=== PATIENT | male | born 1950 | race Caucasian/White ===

== ENCOUNTER → 2016-12-02 | Outpatient (CLI) | payer MEDICAID ==
[2016-12-03 15:10] LABS: Mis test requested (Blood) Bee Venom IgE
== END | disposition home or self-care (01) ==
LOC: LABWHC1 15:21
PROVIDERS: ATTEND Allergy & Immunology
DX: Z91.038 Other insect allergy status (principal)
CPT/HCPCS: 36415; 82785; 86003

== ENCOUNTER → 2016-12-23 | Outpatient (CLI) | payer MEDICAID ==
--- NOTE | 2016-12-23 12:05 | PN ---
DATE OF CONSULTATION: 12/23/2016 A 56-year-old gentleman who has been [facility] for treatment of moderate obstructive sleep apnea-hypopnea syndrome. Patient continued to use his BiPAP equipment. Pressure is 14/10 cm of water. For the last 6 months, patient has more problem with the usage of equipment secondary to nasal allergy. Presently, he is on treatment with Zyrtec. I checked his unit usage. He is 18/30 for more than 4 hours for the last month, average 5.4 hours, for last night he is at 8.4 hours. He increased his weight from 219 pounds up to 233 pounds. No snoring with the machine. No sleepiness. [place] Sleepiness Scale is 5. MEDICATIONS: Zyrtec 10 mg one time daily. During physical exam, patient in no distress. BP 156/72, HR 86, RR 16. Height 74, weight 233.8, temperature 98.2. Oxygen saturation at room air 97%. Oropharynx low position of soft palate. ABDOMEN: Slightly obese. NECK: Supple. No JVD, Thyroid is not palpable. LUNGS: Clear to percussion and to auscultation. Good air exchange. No wheezing or rhonchi. HEART: S1, S2 regular. No murmurs, gallops, or rubs. STARCH COOKER: Awake, alert, and oriented x3. Cranial nerves 2 to 7 intact. There is no fasciculation or atrophy noted. No focal deficits observed. IMPRESSION: 1. Moderate obstructive sleep apnea-hypopnea syndrome. Apnea-hypopnea index 20.7 with oxygen desaturation to 80.6%. Patient continued to use BiPAP equipment benefiting from treatment. 2. Obesity. 3. Arthritis over the back. 4. Arthritis of the hands. 5. Allergic rhinitis. 6. History of headaches in the past. No significant headaches at the present time. PLAN: 1. Continue treatment with BiPAP every night for the whole night. 2. Losing weight. 3. Prescription for all necessary CPAP supplies. 4. No driving if feeling any sleepiness. 5. Followup visit in one year. Thank you very much for allowing me to participate in the management of your patient. Sincerely, Jose Barragan MD, PhD, FAASM Diplomat of [place] [employer], Sleep Medicine Board by [place] [employer] [place] [employer] [facility] [place]
== END | disposition home or self-care (01) ==
LOC: SLEEP 10:11
PROVIDERS: ATTEND Internal Medicine
DX: G47.33 Obstructive sleep apnea (adult) (pediatric) (principal); E66.9 Obesity, unspecified; M47.896 Other spondylosis, lumbar region; M19.042 Primary osteoarthritis, left hand; M19.041 Primary osteoarthritis, right hand; J30.9 Allergic rhinitis, unspecified; Z79.899 Other long term (current) drug therapy

== ENCOUNTER 2017-01-27 06:06 | Emergency (ER) | payer MEDICAID ==
[2017-01-27] MEDS ORDERED: ONDANSETRON 4 MG/2 ML VIAL IVP STA (06:34)
[2017-01-27] MEDS ORDERED: MORPHINE SULFATE 4 MG/ML SYRINGE IV STA (06:34)
[2017-01-27] MEDS ORDERED: SODIUM CHLORIDE 0.9% 1,000 ML IV STA (06:34)
[2017-01-27 06:53] LABS: Basophils % (A) 0 %; Eosinophils # (A) 0.1 k/uL (0-0.7); Eosinophils % (A) 1 %; HCT 43.5 % (39.0-53.0); HDW 2.85; HGB 14.8 gm/dL (13.0-17.5); Luc # (Auto) 0.06; Luc % (Auto) 1; Lymphocytes % (A) 10 %; MCH 29.4 pg (25.0-35.0); MCHC 34.1 g/dL (31.0-37.0); MCV 86.1 fL (80.0-100.0); Mean Platelet Volume 6.2; Monocytes # (A) 0.4 k/uL (0-1.0); Monocytes % (A) 4 %; Neutrophils # (A) 7.8 k/uL (1.3-7.7); Neutrophils % (A) 84 %; RBC 5.05 m/uL (4.30-5.90); RDW 13.1 % (11.5-15.5); WBC 9.3 k/uL (3.8-10.6); WBC (Perox) 9.21
[2017-01-27 06:59] LABS: Appearance,Urine Clear (Clear); Bilirubin,Urine Negative (Negative); Glucose,Urine (UA) Negative (Negative); Ketones,Urine 1+ (Negative); Leukocyte Esterase,Urine Negative (Negative); Nitrite,Urine Negative (Negative); Partial Thromboplastin Time 23.6 sec (22.0-30.0); Particle Count 5832; Protein,Urine 1+ (Negative); Prothrombin Time 10.5 sec (9.0-12.0); RBC,Urine >182 /hpf (0-5); Specific Gravity,Urine 1.019 (1.001-1.035); UA Billing (MACRO vs. MICRO) MICRO; Urobilinogen,Urine <2.0 mg/dL (<2.0)
[2017-01-27 07:04] LABS: ALT 37 U/L (21-72); AST 24 U/L (17-59); Alkaline Phosphatase 59 U/L (38-126); Amylase 96 U/L (30-110); Anion Gap 9 mmol/L; Blood Urea Nitrogen 26 mg/dL (9-20); Calcium 9.3 mg/dL (8.4-10.2); Carbon Dioxide 25 mmol/L (22-30); Chloride 108 mmol/L (98-107); Glucose 135 mg/dL (74-99); Non-African American GFR(MDRD) 56 (>60 ml/min/1.73 sqM); Potassium 4.2 mmol/L (3.5-5.1); Sodium 142 mmol/L (137-145); Total Bilirubin 0.8 mg/dL (0.2-1.3); Total Protein 7.2 g/dL (6.3-8.2)
--- NOTE | 2017-01-27 07:19 | CT ---
EXAMINATION TYPE: CT abdomen pelvis wo con DATE OF EXAM: 01/27/2017 7:08 AM COMPARISON: CT abdomen pelvis 15 August 2015 HISTORY: LLQ pain CT DLP: 832.2 mGycm Automated exposure control for dose reduction was used. TECHNIQUE: Helical acquisition of images from the lung bases through the pelvis. FINDINGS: Lack of intravenous contrast could compromise sensitivity of the exam. LUNG BASES: Minimal basilar atelectatic changes. There is a hiatal hernia present. AORTA: No significant abnormality is appreciated. LIVER/GB: Patient is that is post cholecystectomy. Liver as visualized is stable PANCREAS: No significant abnormality is seen. SPLEEN: No significant abnormality is seen. ADRENALS: No significant abnormality is seen. KIDNEYS: There is perinephric stranding on the left, mild left-sided hydronephrosis. Periureteral inc reased attenuation also noted. Proximal left ureteral calculus is present measuring approximately 3 m m. Exophytic cyst is present at the midpole the right kidney measuring approximately 17 mm. REPRODUCTIVE ORGANS: No significant abnormality is seen. URINARY BLADDER: No significant abnormality is seen. BOWEL: No significant abnormality is seen. FREE AIR: No Free Air is visible. ASCITES: None visible. PELVIC ADENOPATHY: None visualized. RETROPERITONEAL ADENOPATHY: No Retroperitoneal Adenopathy visible. OSSEOUS STRUCTURES: Degenerative disc changes in the visualized spine. IMPRESSION: PROXIMAL LEFT URETERAL CALCULUS WITH HYDRONEPHROSIS. ADDITIONAL FINDINGS ABOVE.
[2017-01-27 07:45] VITALS: RESP 16
[2017-01-27] MEDS ORDERED: TAMSULOSIN 0.4 MG CAP.ER.24H PO STA (07:52)
[2017-01-27] MEDS ORDERED: SODIUM CHLORIDE 0.9% 500 ML IV STA (07:52)
[2017-01-27] MEDS ORDERED: KETOROLAC 30 MG/ML 1 ML VIAL IVP STA (07:52)
--- NOTE | 2017-01-27 08:06 | ED ---
General Adult HPI - General Chief complaint: Abdominal Pain Stated complaint: abd pain Time Seen by Provider: 01/27/17 07:21 Source: patient, RN notes reviewed, old records reviewed Mode of arrival: ambulatory Limitations: no limitations - History of Present Illness Initial comments: This is a 67-year-old male the ER for evaluation of flank pain. Left-sided flank pain rating to groin. Patient has no prior history of similar pain, sudden onset of pain of at 4 AM is morning when he awoke, symptoms have been consistent since. No recent travel history, no sick contacts. The patient takes no medication. Patient does have history of gallbladder removal. No recent nausea vomiting or diarrhea - Related Data Home Medications Medication Instructions Recorded Confirmed Ascorbic Acid [Vitamin C] 500 mg PO DAILY 01/27/17 01/27/17 Cholecalciferol [Vitamin D3] 2,000 unit PO DAILY 01/27/17 01/27/17 Levocetirizine Dihydrochloride 5 mg PO DAILY 01/27/17 01/27/17 [Xyzal] Multivitamins, Thera [Multivitamin 1 tab PO HS 01/27/17 01/27/17 (formulary)] Saw [place] 500 mg PO HS 01/27/17 01/27/17 Turmeric Root Extract [Turmeric] 500 mg PO DAILY 01/27/17 01/27/17 Allergies Allergy/AdvReac Type Severity Reaction Status Date / Time naproxen sodium [From Aleve] Allergy Anaphylaxis Verified 01/27/17 08:02 Review of Systems ROS Statement: Those systems with pertinent positive or pertinent negative responses have been documented in the HPI. ROS Other: All systems not noted in ROS Statement are negative. Past Medical History Past Medical History: Rheumatoid Arthritis (RA), Sleep Apnea/CPAP/BIPAP History of Any Multi-Drug Resistant Organisms: None Reported Past Surgical History: Adenoidectomy, Cholecystectomy, Tonsillectomy Additional Past Surgical History / Comment(s): deviated septum Past Psychological History: No Psychological Hx Reported Smoking Status: Former smoker Past Alcohol Use History: None Reported Past Drug Use History: None Reported General Exam Limitations: no limitations General appearance: alert, in no apparent distress, anxious Head exam: Present: atraumatic, normocephalic, normal inspection Eye exam: Present: normal appearance, PERRL, EOMI. Absent: scleral icterus, conjunctival injection, periorbital swelling ENT exam: Present: normal exam, mucous membranes moist Neck exam: Present: normal inspection. Absent: tenderness, meningismus, lymphadenopathy Respiratory exam: Present: normal lung sounds bilaterally. Absent: respiratory distress, wheezes, rales, rhonchi, stridor Cardiovascular Exam: Present: regular rate, normal rhythm, normal heart sounds. Absent: systolic murmur, diastolic murmur, rubs, gallop, clicks GI/Abdominal exam: Present: soft, normal bowel sounds. Absent: distended, tenderness, guarding, rebound, rigid Extremities exam: Present: normal inspection, full ROM, normal capillary refill. Absent: tenderness, pedal edema, joint swelling, calf tenderness Back exam: Present: normal inspection Neurological exam: Present: alert, oriented X3, CN II-XII intact Psychiatric exam: Present: normal affect, normal mood Skin exam: Present: warm, dry, intact, normal color. Absent: rash Course Vital Signs 01/27/17 01/27/17 06:12 07:16 Temperature 96.7 F L 97.2 F L Pulse Rate 62 73 Respiratory 18 16 Rate Blood Pressure 145/68 134/64 O2 Sat by Pulse 100 97 Oximetry - Reevaluation(s) Reevaluation #1: 01/27/17 08:05 Patient's pain is times control EKG Findings - EKG Comments: EKG Findings:: EKG shows sinus rhythm rate of 70, OK 212, QRS 98, QTc 455 Medical Decision Making - Medical Decision Making 67 male at this time for evaluation. Patient does presents today for evaluation of flank pain left sided flank pain rating to groin, positive left- sided kidney stone, at this time patient's pain is controlled, no infection to patient can be discharged home - Lab Data Result diagrams: 01/27/17 06:40 01/27/17 06:40 Lab Results 01/27/17 01/27/17 01/27/17 Range/Units 06:40 06:40 06:40 WBC 9.3 (3.8-10.6) k/uL RBC 5.05 (4.30-5.90) m/uL Hgb 14.8 (13.0-17.5) gm/dL Hct 43.5 (39.0-53.0) % MCV 86.1 (80.0-100.0) fL MCH 29.4 (25.0-35.0) pg MCHC 34.1 (31.0-37.0) g/dL RDW 13.1 (11.5-15.5) % Plt Count 220 (150-450) k/uL Neutrophils % 84 % Lymphocytes % 10 % Monocytes % 4 % Eosinophils % 1 % Basophils % 0 % Neutrophils # 7.8 H (1.3-7.7) k/uL Lymphocytes # 1.0 (1.0-4.8) k/uL Monocytes # 0.4 (0-1.0) k/uL Eosinophils # 0.1 (0-0.7) k/uL Basophils # 0.0 (0-0.2) k/uL PT 10.5 (9.0-12.0) sec INR 1.0 (<1.1) APTT 23.6 (22.0-30.0) sec Sodium 142 (137-145) mmol/L Potassium 4.2 (3.5-5.1) mmol/L Chloride 108 H (98-107) mmol/L Carbon Dioxide 25 (22-30) mmol/L Anion Gap 9 mmol/L BUN 26 H (9-20) mg/dL Creatinine 1.29 H (0.66-1.25) mg/dL Est GFR (MDRD) Af Amer >60 (>60 ml/min/1.73 sqM) Est GFR (MDRD) Non-Af 56 (>60 ml/min/1.73 sqM) Glucose 135 H (74-99) mg/dL Calcium 9.3 (8.4-10.2) mg/dL Total Bilirubin 0.8 (0.2-1.3) mg/dL AST 24 (17-59) U/L ALT 37 (21-72) U/L Alkaline Phosphatase 59 (38-126) U/L Total Protein 7.2 (6.3-8.2) g/dL Albumin 4.4 (3.5-5.0) g/dL Amylase 96 (30-110) U/L Lipase 204 (23-300) U/L Urine Color Urine Appearance (Clear) Urine pH (5.0-8.0) Ur Specific [place] (1.001-1.035) Urine Protein (Negative) Urine Glucose (UA) (Negative) Urine Ketones (Negative) Urine Blood (Negative) Urine Nitrite (Negative) Urine Bilirubin (Negative) Urine Urobilinogen (<2.0) mg/dL Ur Leukocyte Esterase (Negative) Urine RBC (0-5) /hpf 01/27/17 Range/Units 06:40 WBC (3.8-10.6) k/uL RBC (4.30-5.90) m/uL Hgb (13.0-17.5) gm/dL Hct (39.0-53.0) % MCV (80.0-100.0) fL MCH (25.0-35.0) pg MCHC (31.0-37.0) g/dL RDW (11.5-15.5) % Plt Count (150-450) k/uL Neutrophils % % Lymphocytes % % Monocytes % % Eosinophils % % Basophils % % Neutrophils # (1.3-7.7) k/uL Lymphocytes # (1.0-4.8) k/uL Monocytes # (0-1.0) k/uL Eosinophils # (0-0.7) k/uL Basophils # (0-0.2) k/uL PT (9.0-12.0) sec INR (<1.1) APTT (22.0-30.0) sec Sodium (137-145) mmol/L Potassium (3.5-5.1) mmol/L Chloride (98-107) mmol/L Carbon Dioxide (22-30) mmol/L Anion Gap mmol/L BUN (9-20) mg/dL Creatinine (0.66-1.25) mg/dL Est GFR (MDRD) Af Amer (>60 ml/min/1.73 sqM) Est GFR (MDRD) Non-Af (>60 ml/min/1.73 sqM) Glucose (74-99) mg/dL Calcium (8.4-10.2) mg/dL Total Bilirubin (0.2-1.3) mg/dL AST (17-59) U/L ALT (21-72) U/L Alkaline Phosphatase (38-126) U/L Total Protein (6.3-8.2) g/dL Albumin (3.5-5.0) g/dL Amylase (30-110) U/L Lipase (23-300) U/L Urine Color Light Red Urine Appearance Clear (Clear) Urine pH 6.0 (5.0-8.0) Ur Specific [place] 1.019 (1.001-1.035) Urine Protein 1+ H (Negative) Urine Glucose (UA) Negative (Negative) Urine Ketones 1+ H (Negative) Urine Blood Large H (Negative) Urine Nitrite Negative (Negative) Urine Bilirubin Negative (Negative) Urine Urobilinogen <2.0 (<2.0) mg/dL Ur Leukocyte Esterase Negative (Negative) Urine RBC >182 H (0-5) /hpf - Radiology Data Radiology results: report reviewed (CT pelvis positive for kidney stone), image reviewed Disposition Clinical Impression: Calculus of right kidney Disposition: HOME SELF-CARE Condition: Good Instructions: Kidney Stones (ED) Referrals: Pro Mobley DO [Primary Care Provider] - 1-2 days
[2017-01-27 08:40] VITALS: BP 127/69; PULSE 74; TEMP 98.2
== END 2017-01-27 08:34 | disposition home or self-care (01) ==
LOC: EC 06:06
DX: N20.0 Calculus of kidney (principal); Z87.891 Personal history of nicotine dependence; Z79.899 Other long term (current) drug therapy; Z88.6 Allergy status to analgesic agent; Z90.49 Acquired absence of other specified parts of digestive tract
CPT/HCPCS: 99285; 96374; 96375; 96361 ×2; 36415; 93005; 80053; 82150; 83690; 84484; 85025; 85610; 85730; 81001; 74176; J2270; J2405

== ENCOUNTER 2017-08-08 11:54 | Emergency (ER) | payer MEDICAID ==
--- NOTE | 2017-08-08 12:33 | ED ---
Upper Extremity HPI - General Chief Complaint: Extremity Injury, Upper Stated Complaint: LEFT SHOULDER INJURY Time Seen by Provider: 08/08/17 12:12 Source: patient, RN notes reviewed Mode of arrival: ambulatory Limitations: no limitations - History of Present Illness Initial Comments: 67-year-old male presents emergency Department with chief complaint of left upper shoulder, trapezius region pain. Patient states this started approximately 10 days ago after raking. Patient states that his left arm was on the lower aspect of the rake handle states that this is what he uses primarily to rake. Patient states he is [id number] though. Patient denies any prior injuries denies prior surgeries or any injuries in the past to his left shoulder. Patient denies any paresthesias. Patient states he has pain more so when he lifts his arm above his shoulder but also if he goes to lift anything of any weight. 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 denies chest pain, shortness breath, fever or chills. He states he got something do with his back or neck [facility] went to chiropractic today but states it did not help. Patient states that he had more discomfort today so he felt that he needs: The emergency department. Patient states she's been taken ibuprofen and initially alleviated most the symptoms but states it has not been helping as much. - Related Data Home Medications Medication Instructions Recorded Confirmed Ascorbic Acid [Vitamin C] 500 mg PO DAILY 01/27/17 01/27/17 Cholecalciferol [Vitamin D3] 2,000 unit PO DAILY 01/27/17 01/27/17 Levocetirizine Dihydrochloride 5 mg PO DAILY 01/27/17 01/27/17 [Xyzal] Multivitamins, Thera [Multivitamin 1 tab PO HS 01/27/17 01/27/17 (formulary)] Saw [place] 500 mg PO HS 01/27/17 01/27/17 Turmeric Root Extract [Turmeric] 500 mg PO DAILY 01/27/17 01/27/17 Previous Rx's Medication Instructions Recorded HYDROcodone/APAP 5-325MG [[place] 1 tab PO Q6HR PRN #30 tab 01/27/17 5-325] Tamsulosin [Flomax] 0.4 mg PO DAILY #30 cap 01/27/17 Hydrocodone/Acetaminophen [[place] 1 tab PO Q6HR PRN #20 tab 08/08/17 5-325] methylPREDNISolone [Medrol Dose 4 mg PO DIRECTED #1 pack 08/08/17 Pack] Allergies Allergy/AdvReac Type Severity Reaction Status Date / Time naproxen sodium [From Aleve] Allergy Anaphylaxis Verified 08/08/17 11:58 Review of Systems ROS Statement: Those systems with pertinent positive or pertinent negative responses have been documented in the HPI. ROS Other: All systems not noted in ROS Statement are negative. Past Medical History Past Medical History: Rheumatoid Arthritis (RA), Sleep Apnea/CPAP/BIPAP Additional Past Medical History / Comment(s): back pain History of Any Multi-Drug Resistant Organisms: None Reported Past Surgical History: Adenoidectomy, Cholecystectomy, Tonsillectomy Additional Past Surgical History / Comment(s): deviated septum Past Psychological History: No Psychological Hx Reported Smoking Status: Former smoker Past Alcohol Use History: None Reported Past Drug Use History: None Reported General Exam Limitations: no limitations General appearance: alert, in no apparent distress Head exam: Present: atraumatic, normocephalic, normal inspection Eye exam: Present: normal appearance, PERRL, EOMI. Absent: scleral icterus, conjunctival injection, periorbital swelling ENT exam: Present: normal exam, normal oropharynx, mucous membranes moist, TM's normal bilaterally, normal external ear exam Neck exam: Present: normal inspection, tenderness (Mild tenderness over the left trapezius region, noted muscle spasm), full ROM. Absent: meningismus, lymphadenopathy Respiratory exam: Present: normal lung sounds bilaterally. Absent: respiratory distress, wheezes, rales, rhonchi, stridor Cardiovascular Exam: Present: regular rate, normal rhythm, normal heart sounds. Absent: systolic murmur, diastolic murmur, rubs, gallop, clicks Extremities exam: Present: other (Left shoulder patient has full range of motion with mild discomfort greater than proximal 105 with a negative apprehension neers impingement test, strength is equal bilaterally 5/5 no pain with internal or external rotation neurovascular intact and equal radial pulses equal color to the extremities) Neurological exam: Present: reflexes normal. Absent: motor sensory deficit Skin exam: Present: warm, dry, intact, normal color. Absent: rash Course Vital Signs 11/20/17 11:56 Temperature 98.0 F Pulse Rate 70 Respiratory 20 Rate Blood Pressure 178/86 O2 Sat by Pulse 100 Oximetry Medical Decision Making - Medical Decision Making 67-year-old male present emergency from for left shoulder neck pain. Patient's pain seems to be more cervical radiculopathy pain along with some shoulder tendinitis. Patient was started on steroids, pain medication and follow-up with Dr. Simon.X-ray of the cervical spine shows mild to moderate spondylitic changes no malalignment there is moderate neuroforaminal narrowing at the left C4-C5 and moderate to severe at C3-C4 moderate severe on the right at C6-C7 Disposition Clinical Impression: Left shoulder tendinitis, AC (acromioclavicular) arthritis, Cervical radiculopathy Disposition: HOME SELF-CARE Condition: Stable Instructions: Cervical Radiculopathy (ED), Rotator Cuff Tendinitis (ED) Additional Instructions: Please return to the Emergency Department if symptoms worsen or any other concerns. Prescriptions: Hydrocodone/Acetaminophen [[place] 5-325] 1 tab PO Q6HR PRN #20 tab PRN Reason: Pain methylPREDNISolone [Medrol Dose Pack] 4 mg PO DIRECTED #1 pack Referrals: Pro Mobley DO [Primary Care Provider] - 1-2 days Keara Zhu DO [Doctor of Osteopathic Medicine] - 1-2 days Time of Disposition: 13:06
--- NOTE | 2017-08-08 12:53 | XR ---
EXAMINATION TYPE: XR cervical spine comp DATE OF EXAM: 08/08/2017 COMPARISON: NONE HISTORY: 67 year-old male left shoulder pain, worsening TECHNIQUE: 6 views FINDINGS: No predental space widening or prevertebral soft tissue swelling. Mild endplate spondylosis anteriorl y at C4-C5 and C5-C6 and more moderate at C6-C7. Alignment is maintained. Facet arthropathy lower cer vical spine. On the left, changes result in moderate bony neuroforaminal narrowing at C4-C5 and moderate to severe at C3-C4. On the right, changes result in moderate to severe bony spondylotic neuroforaminal narrowing at C6-C7 . Limited assessment of the C2-C3 neuroforamen due to the obliquity of the patient. Normal odontoid view. IMPRESSION: [id number] spondylotic change. No malalignment. There is moderate neuroforaminal narrowing on t he left at C4-C5 and moderate to severe at C3-C4. Moderate to severe on the right at C6/C7.
--- NOTE | 2017-08-08 12:54 | XR ---
EXAMINATION TYPE: XR shoulder complete LT DATE OF EXAM: 08/08/2017 COMPARISON: NONE HISTORY: 67 year-old male left shoulder pain, worsening TECHNIQUE: 3 views FINDINGS: Mild degenerative joint space narrowing with marginal spurring and capsular hypertrophy at the acromi oclavicular joint. Subacromial space is preserved. No tendinous or bursal calcifications. Small delineation to the great er tuberosity. Visualized left hemithorax is clear. IMPRESSION: Mild AC joint OA. No acute osseous abnormality seen.
[2017-08-08 13:13] VITALS: BP 147/78; PULSE 64; RESP 18; TEMP 98.1
== END 2017-08-08 13:13 | disposition home or self-care (01) ==
LOC: EC 11:54
DX: M75.92 Shoulder lesion, unspecified, left shoulder (principal); M19.012 Primary osteoarthritis, left shoulder; M54.12 Radiculopathy, cervical region; G47.30 Sleep apnea, unspecified; Z99.89 Dependence on other enabling machines and devices; Z87.891 Personal history of nicotine dependence; Z79.899 Other long term (current) drug therapy; Z88.6 Allergy status to analgesic agent
CPT/HCPCS: 72050; 99283

== ENCOUNTER → 2017-09-30 | Outpatient (CLI) | payer MEDICAID ==
--- NOTE | 2017-09-30 10:00 | MR ---
EXAMINATION TYPE: MR shoulder LT wo con DATE OF EXAM: 09/30/2017 COMPARISON: NONE HISTORY: Pain in left shoulder TECHNIQUE: Multiplanar, multisequence imaging of the left shoulder is performed without contrast. FINDINGS: Rotator Cuff: There is a partial through thickness tear involving the insertion of the infraspinatus tendon measuring approximately 11 mm in AP dimension. No retraction. There is intrasubstance abnormal signal involving the distal margin of the supraspinatus tendon compatible with chronic tendinopathy. Partial intrasubstance tear noted with no evidence of retraction. Acromioclavicular Joint: Arthropathy of the AC joint is noted. This results in impingement of the sup raspinatus tendon and muscle. There is a degree of atrophy involving the supraspinatus muscle. Glenohumeral Joint: No sizable joint effusion. Glenohumeral ligaments appear intact. Joint space pres erved. Labrum: The labrum appears grossly intact given limitation of non-arthrogram study. Biceps Tendon: The long head of biceps is in normal location within bicipital groove. Increased signa l seen in the intracapsular portion of the tendon compatible tendinosis. Bone marrow signal: No focal abnormal marrow signal is appreciated. Other: No additional significant abnormality is appreciated. IMPRESSION: 1. Partial through thickness tear insertion infraspinatus tendon with no retraction. 2. Tendinosis and partial intrasubstance tear insertion supraspinatus tendon. 3. Bicipital tendinosis intracapsular portion bicipital tendon. 4. Impingement secondary to hypertrophic change of the AC joint. Degree of atrophy involving the supr aspinatus muscle.
== END | disposition home or self-care (01) ==
LOC: RADMRIMAIN 09:08
PROVIDERS: ATTEND Orthopaedic Surgery
DX: M75.112 Incomplete rotator cuff tear or rupture of left shoulder, not specified as traumatic (principal); M75.22 Bicipital tendinitis, left shoulder; M25.812 Other specified joint disorders, left shoulder; M62.512 Muscle wasting and atrophy, not elsewhere classified, left shoulder

== ENCOUNTER → 2017-10-20 | Outpatient (CLI) | payer MEDICAID ==
[2017-10-20 09:54] LABS: Basophils % (A) 0 %; Eosinophils # (A) 0.1 k/uL (0-0.7); Eosinophils % (A) 2 %; HCT 42.4 % (39.0-53.0); HGB 14.2 gm/dL (13.0-17.5); Lymphocytes # (A) 1.9 k/uL (1.0-4.8); Lymphocytes % (A) 33 %; MCH 29.3 pg (25.0-35.0); MCHC 33.6 g/dL (31.0-37.0); MCV 87.4 fL (80.0-100.0); Mean Platelet Volume 6.8; Monocytes # (A) 0.3 k/uL (0-1.0); Monocytes % (A) 5 %; Neutrophils # (A) 3.2 k/uL (1.3-7.7); Neutrophils % (A) 56 %; Platelet Count 231 k/uL (150-450); RBC 4.84 m/uL (4.30-5.90); WBC 5.6 k/uL (3.8-10.6)
== END | disposition home or self-care (01) ==
LOC: LABPAT 09:10
PROVIDERS: ATTEND Orthopaedic Surgery
DX: Z01.818 Encounter for other preprocedural examination (principal); Z01.812 Encounter for preprocedural laboratory examination; M75.42 Impingement syndrome of left shoulder
CPT/HCPCS: 36415; 80051; 85025; 93005

== ENCOUNTER 2017-11-03 07:56 | Day surgery (SDC) | payer MEDICAID ==
[2017-10-31 10:14] VITALS: BMI 27.2
--- NOTE | 2017-11-02 17:50 | HP ---
HISTORY AND PHYSICAL REASON FOR ADMISSION: Surgery scheduled for 11/03/2017. Janes Severino is a 67-year-old patient seen with left shoulder pain. We discussed treatment options. He elected to proceed with left shoulder arthroscopy. Consent regarding the procedure was obtained. PAST MEDICAL HISTORY: Noncontributory. PAST SURGICAL HISTORY: Appendectomy, cholecystectomy, nasal surgery. DAILY MEDICATIONS: Ibuprofen. ALLERGIES: ALEVE. SOCIAL HISTORY: Patient denies current tobacco use. PHYSICAL EXAMINATION: Evaluation left shoulder flexion is 130 degrees, abduction 120 degrees, external rotation is 50 degrees with weakness. There is tenderness along the anterior lateral acromion rotator cuff insertion site. There is a positive impingement sign at 100 degrees. Distal neurovascular exam is intact. Drop-arm sign is positive. RADIOGRAPHS: Radiographs of the left shoulder revealed a type 2 anterior acromion, evidence for acromioclavicular joint osteoarthritis. Left shoulder MRI revealed a partial rotator cuff tear, biceps tendinosis, and acromioclavicular joint osteoarthritis. IMPRESSION: Left shoulder impingement with partial rotator cuff tear, acromioclavicular joint osteoarthritis and bicipital tendinosis. PLAN: Left shoulder arthroscopy with subacromial decompression probable arthroscopic rotator cuff repair, probable Maggie procedure, possible biceps tenotomy and debridement. Surgery scheduled for 11/03/2017. MMODL / IJN: [id number] /
[~2017-11-03 07:56] MED LIST: DEXAMETHASONE SOD PHOSPHATE 10 MG/ML 1 ML VIAL IV ONE; HYDROmorphone 0.5 MG/0.5 ML SYRINGE IVP PRN; LACTATED RINGERS 1,000 ML IV SCH; LIDOCAINE 1% 20 ML VIAL (10MG/ML) FOR IV START INTRADERMA PRN; MIDAZOLAM 2 MG/2 ML VIAL IV PRN; ONDANSETRON 4 MG/2 ML VIAL IVP ONE; SCOPOLAMINE 1.5MG/72HR PATCH TRANSDERM ONE; ceFAZolin IN SWFI 2 GM/20 ML SYRINGE IVP ONE
[2017-11-03] MEDS ORDERED: fentaNYL (PF) 50 MCG/ML 2 ML AMP IV ONE (08:35)
[2017-11-03] MEDS ORDERED: fentaNYL (PF) 50 MCG/ML 2 ML AMP ONE (09:37)
[2017-11-03] MEDS ORDERED: MIDAZOLAM 2 MG/2 ML VIAL ONE (09:37)
[2017-11-03] MEDS ORDERED: ROPIVACAINE 5 MG/ML 30 ML VIAL ONE (09:37)
[2017-11-03] MEDS ORDERED: ePHEDrine SULFATE/0.9% NACL/PF 50 MG/5 ML SYRINGE IV ONE (09:37)
[2017-11-03] MEDS ORDERED: SUCCINYLCHOLINE CHLORIDE 100 MG/5 ML SYR IV ONE (09:37)
[2017-11-03] MEDS ORDERED: PROPOFOL 10 MG/ML 20 ML VIAL IV ONE (09:37)
[2017-11-03] MEDS ORDERED: LIDOCAINE 2%-EPI 1:100,000 20 ML VIAL ONE (09:37)
[2017-11-03] MEDS ORDERED: LIDOCAINE 1% INJ 10MG/ML (20 ML MDV) ONE (09:37)
--- NOTE | 2017-11-03 10:29 | P.ONQ ---
Anesthesiology Proc Note - PNB - Peripheral Nerve Block Performed Left Interscalene Single Time Out Performed: Yes Procedure Start Time: 08:30 Indication: Acute Post-Operative Pain, Analgesia Specifically requested for management of pain by DrElen: Rajiv King Sedation Type: Sedate with meaningful contact maintained Preparation: Sterile Prep Position: Supine Catheter: None Needle Types: Other (see comment) (pajunk) Needle Size: 50mm (2") Needle Gauge: 21 Technique: Ultrasound Injectate: 0.5% Ropivacaine (see comment for volume) (30) Adjunct: Epinephrine (see comment for dilution ratio) (150mcg) Blood Aspirated: No Pain Paresthesia on Injection Noted: No Resistance on Injection: Normal Events: Uneventful and Well Tolerated
[2017-11-03] MEDS ORDERED: LACTATED RINGERS 1,000 ML IV ONE (10:45)
[2017-11-03 11:24] VITALS: TEMP 96.8
--- NOTE | 2017-11-03 11:24 | P.OP ---
Date of Procedure: 11/03/17 Preoperative Diagnosis: Left shoulder impingement Postoperative Diagnosis: 1. Left shoulder rotator cuff tear 2. Left shoulder impingement 3. Left shoulder acromioclavicular joint osteoarthritis 4. Left shoulder partial long head biceps tendon tear 5. Left shoulder superficial anterior labral tear 6. 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 Left shoulder arthroscopic rotator cuff repair 2. Left shoulder arthroscopic subacromial decompression 3. Left shoulder arthroscopic Maggie procedure 4. Left shoulder arthroscopic biceps tenotomy 5. Left shoulder arthroscopic debridement labral tear 6. Left shoulder arthroscopic chondroplasty glenoid Implants: 1-4.5 peek anchor Anesthesia: GETA, regional (Interscalene the) Surgeon: Rajiv King General Helper #1: Irving Vera Estimated Blood Loss (ml): 13 Pathology: none sent Condition: stable Disposition: PACU Indications for Procedure: 67-year-old patient seen with left shoulder pain. After having treatment options discussed, he elected to proceed with arthroscopy. Operative Findings: see description of procedure Description of Procedure: Patient underwent a shoulder block by department of anesthesia. The patient was then taken to the operative suite. The patient underwent a general anesthetic by the department of anesthesia. The patient was placed into a lateral position and secured. There was appropriate padding of the bony prominence. Left shoulder was then prepped and draped in normal sterile orthopedic fashion. We placed the extremity in 10 pounds of longitudinal traction. A posterior incision was now made for a posterior working portal site. The trocar and cannula were inserted into the glenohumeral joint. Arthroscopy was initiated. Spinal needle was now inserted anteriorly, to ascertain the anterior working portal site. An incision was now made in that area, a trocar was inserted followed by a probe. There was superficial tearing of the anterior labrum. There were grade 1/2 chondromalacia changes of the superior aspect of the glenoid with some small osteochondral tears present. There was partial tearing long head biceps tendon present. The posterior and inferior labrum were intact. The superior labrum had some mild fraying. I performed a arthroscopic biceps tenotomy. I debrided the labral tears down to stable tissue. I performed a chondroplasty of the glenoid. The probe was reinserted. The residual osteochondral surface was stable. The residual labrum was stable. Instruments were now removed from the glenohumeral joint. Utilizing the posterior working portal site, the trocar and cannula were inserted into the subacromial space. Arthroscopy initiated. I made an incision 2 fingerbreadths lateral to the acromion. I introduced my trocar followed by my ArthroCare ablator. I now began ablating thick subacromial bursal tissue, which exposed the undersurface of the anterior acromion. This was diminished subacromial space. There was a very prominent anterior acromion. A motorized bur was introduced and a subacromial decompression was performed. I also excised some osteophytes off the inferior aspect of the distal clavicle. The AC joint was visualized and noted to be fairly arthritic. Our motorized bur was introduced in the anterior portal site and a Maggie procedure was performed without difficulty, decompressing the AC joint nicely. I turned my attention to the rotator cuff. There was some obvious tearing noted along the midportion distal supraspinatus. I used a motorized shaver and debrided that down to stable tissue. We had a 1-1.5 cm tear that was freely mobile over the footprint. I abraded the footprint with a motorized bur. I passed 2 everted mattress sutures through good bites of rotator cuff tendon. We pulled that over the footprint we did note a dogear low posteriorly. I passed 1 additional suture loop through that potential dogear. We now repaired the tendon with one single 4.5 anchor compressing the tendon along the footprint nicely. Residual suture limbs were clipped. We had a good stable repair. I injected 1 mL of UCT intra-articular. Instruments now removed from the portal sites. All portal sites were approximated with nylon suture. Sterile dressings were applied followed by a shoulder immobilizer. Pankaj YIN assisted with the procedure. The patient was awakened, transferred to a bed, and taken to recovery in stable condition.
[2017-11-03 12:29] VITALS: PULSE 72
[2017-11-03 12:42] VITALS: BP 118/68; RESP 18
== END 2017-11-03 13:14 | disposition home or self-care (01) ==
LOC: OR 07:56
PROVIDERS: ATTEND Orthopaedic Surgery
DX: M75.102 Unspecified rotator cuff tear or rupture of left shoulder, not specified as traumatic (principal); M25.812 Other specified joint disorders, left shoulder; M19.012 Primary osteoarthritis, left shoulder; S46.112A Strain of muscle, fascia and tendon of long head of biceps, left arm, initial encounter; S43.402A Unspecified sprain of left shoulder joint, initial encounter; X58.XXXA Exposure to other specified factors, initial encounter; M94.212 Chondromalacia, left shoulder; M25.712 Osteophyte, left shoulder; Z79.1 Long term (current) use of non-steroidal anti-inflammatories (NSAID); Z88.6 Allergy status to analgesic agent; Z87.891 Personal history of nicotine dependence; Z87.442 Personal history of urinary calculi
CPT/HCPCS: 64415

== ENCOUNTER → 2017-12-22 | Outpatient (CLI) | payer MEDICAID ==
--- NOTE | 2017-12-22 12:00 | SFUN ---
SLEEP STUDY FOLLOW UP NOTE DATE OF SERVICE: 12/22/2017 A 67-year-old gentleman who has been followed in the Sleep Center for treatment of moderate obstructive sleep apnea-hypopnea syndrome, previous sleep study done in 2013. Since that time, patient was on treatment with BiPAP 14/10 cm of water since 2013, but for the last 6 months he has problem with the usage of BiPAP, feels discomfort in his nose, developed symptoms of sinusitis and subsequently he did not use equipment for that period of time. He continued to have problems with breathing during the night, awakenings from sleep. [place] Sleepiness Scale increased to 10. I checked his BiPAP unit, BiPAP pressure 14/10 cm of water. Patient did not use it for several months. MEDICATIONS: Ibuprofen, Xyzal. PHYSICAL EXAM: Patient in no distress. BP 127/86, HR 88, RR 14, height 6, 1, weight 220.4, BMI 29.0, temperature 99.3, oxygen saturation at room air 98%. OROPHARYNX: Low position of soft palate. Neck Supple, no JVD. Thyroid is not palpable. LUNGS Clear to percussion and to auscultation. Good air exchange. No wheezing or rhonchi. HEART S1, S2 regular. No murmurs, gallops, or rubs. ABDOMEN Soft and nontender. Bowel sounds are present. No organomegaly appreciated. EXTREMITIES No clubbing or cyanosis. CHARGE ENTRY CLERK Awake, alert, and oriented X3. Cranial nerves 2 to 7 intact. There is no fasciculation or atrophy. noted. No focal deficits observed. IMPRESSION: 1. Moderate obstructive sleep apnea-hypopnea syndrome; apnea-hypopnea index 20.7 with oxygen desaturation to 80.6% by results of sleep study several years ago. Patient not able to use machine for several months because of discomfort in the nose. 2. History of sinusitis. 3. Allergy. 4. Status post left shoulder surgery for rotator cuff problems. 5. Back problems. PLAN: 1. Repeat CPAP-BiPAP titration for evaluation of effective pressure at the present time. 2. Sleep hygiene with regular time in bed for at least 7-1/2, 8 hours. 3. No driving if feeling any sleepiness. 4. Patient will restart treatment with PAP after pressure will be adjusted. Thank you very much for allowing me to participate in the management of your patient. Sincerely, Jose Barragan MD, PhD, FAASM Diplomat of [place] Quality Control Manager of [facility] [place] MMANNIKA / KATLIN: [phone] /
== END | disposition home or self-care (01) ==
LOC: SLEEP 10:26
PROVIDERS: ATTEND Internal Medicine
DX: G47.33 Obstructive sleep apnea (adult) (pediatric) (principal); T78.40XA Allergy, unspecified, initial encounter; Z99.89 Dependence on other enabling machines and devices; Z79.1 Long term (current) use of non-steroidal anti-inflammatories (NSAID); Z79.899 Other long term (current) drug therapy; Z98.890 Other specified postprocedural states; Z87.09 Personal history of other diseases of the respiratory system

== ENCOUNTER → 2018-09-14 | Outpatient (CLI) | payer MEDICAID ==
--- NOTE | 2018-09-14 11:23 | SFUN ---
SLEEP CENTER FOLLOW UP NOTE DATE OF SERVICE: 09/14/2018 A 68-year-old gentleman who has been followed in the Sleep Center for treatment of obstructive sleep apnea-hypopnea syndrome. Patient has difficulties with the usage of BiPAP equipment secondary to leaking from his full face mask to the eye area. He cannot use nasal mask because he has difficulties to breathe from the nose in relationship to his allergies and sinusitis. When he is able to use machine, he feels better during sleep and during the day. [place] Sleepiness Scale today is 9. MEDICATIONS: Benadryl. PHYSICAL EXAM: Patient in no distress. BP 128/73, HR 84, RR 16, height 6 and 1, weight 218, body mass index 28.7, temperature 98.4, oxygen saturation at room air 97%. OROPHARYNX: Low position of soft palate. Neck Supple, no JVD. Thyroid is not palpable. LUNGS Clear to percussion and to auscultation. Good air exchange. No wheezing or rhonchi. HEART S1, S2 regular. No murmurs, gallops, or rubs. ABDOMEN Soft and nontender. Bowel sounds are present. No organomegaly appreciated. EXTREMITIES No clubbing or cyanosis. DATA ARCHITECT Awake, alert, and oriented X3. Cranial nerves 2 to 7 intact. There is no fasciculation or atrophy. noted. No focal deficits observed. IMPRESSION: 1. Moderate obstructive sleep apnea-hypopnea syndrome; apnea-hypopnea index 20.7 with oxygen desaturation to 80.6% by results of sleep study several years ago. Patient has difficulties with the usage of his BiPAP machine secondary to leak from his mask to the eyes area. 2. History of sinusitis. 3. Allergy. 4. Status post left shoulder surgery for rotator cuff problems. 5. Back problems. PLAN: 1. Refitted patient with a Dream Wear full-face mask and patient believes that this mask is better than the one he using now. I will write a prescription for that mask and patient will get this mask. 2. Patient should continue to use BiPAP equipment every night. 3. Sleep hygiene with regular time in bed for at least 8 hours. 4. No driving if feeling sleepiness. 5. Followup visit in 2 months to evaluate the patient breathing with this type of mask and check his apnea-hypopnea index on BiPAP. Thank you very much for allowing me to participate in management of your patient. Sincerely, Jose Stefadu, MD, PhD, FAASM Diplomat of [employer] [employer] Company Tanker Truck Driver of [facility] [place] MMODL / KATLIN: [phone] /
== END | disposition home or self-care (01) ==
LOC: SLEEP 10:08
PROVIDERS: ATTEND Internal Medicine
DX: G47.33 Obstructive sleep apnea (adult) (pediatric) (principal); M53.9 Dorsopathy, unspecified; T78.40XA Allergy, unspecified, initial encounter; Z99.89 Dependence on other enabling machines and devices; Z79.899 Other long term (current) drug therapy; Z98.890 Other specified postprocedural states; Z87.09 Personal history of other diseases of the respiratory system

== ENCOUNTER → 2018-10-25 | Outpatient (CLI) | payer MEDICAID ==
--- NOTE | 2018-10-25 11:17 | SFUN ---
SLEEP CENTER FOLLOW UP NOTE DATE OF SERVICE: 10/25/2018 A 68-year-old gentleman who has been followed in the Sleep Center for treatment of obstructive sleep apnea-hypopnea syndrome. Patient continued to use CPAP equipment but still has some problem with his full-face mask. After the previous visit, we changed full-face mask to Dream Wear full-face mask but patient open-mouth still with this mask and sometimes the edge of the mask goes to the mouth and he does not feel comfortable. Before we tried Dorothy View mask which also mask goes under the nose and cover mouth and it also unfortunately did not work. [place] Sleepiness Scale today is 5. MEDICATIONS: Benadryl. I checked patient's CPAP unit. Usage is 16/30 nights more than 4 hours, average usage 4.2 hours. PHYSICAL EXAM: Patient in no distress. BP 147/65, HR 90, RR 16, height 6 and 1, weight 218, body mass index 28.7, temperature 99.1. Oxygen saturation at room air 97%. OROPHARYNX: Low position of soft palate. Neck Supple, no JVD. Thyroid is not palpable. LUNGS Clear to percussion and to auscultation. Good air exchange. No wheezing or rhonchi. HEART S1, S2 regular. No murmurs, gallops, or rubs. ABDOMEN Soft and nontender. Bowel sounds are present. No organomegaly appreciated. EXTREMITIES No clubbing or cyanosis. TESTER EQUIPMENT Awake, alert, and oriented X3. Cranial nerves 2 to 7 intact. There is no fasciculation or atrophy. noted. No focal deficits observed. IMPRESSION: 1. Moderate obstructive sleep apnea-hypopnea syndrome; apnea-hypopnea index 20.7. Patient continued to use BiPAP equipment, but has difficulties with a full-face mask when he opens mouth, edge of the mask may go to the mouth. He has difficulties with the using chin strap, it presses on his head and creates headaches. 2. History of sinusitis. 3. Allergy. 4. Status post left shoulder surgery for rotator cuff problem. 5. Back problems. PLAN: 1. We will try Mirage Quattro full-face mask. I will write a prescription for this mask today. 2. Patient will continue to use his BiPAP equipment every night. 3. Sleep hygiene with regular time in bed for 7.5 hours. 4. No driving if feeling sleepiness. Thank you very much for allowing me to participate in the management of your patient. Sincerely, Jose Barragan MD, PhD, FAASM Diplomat of [employer] Emblem Maker of [facility] [place] MOHIT / KATLIN: [phone] /
== END | disposition home or self-care (01) ==
LOC: SLEEP 10:14
PROVIDERS: ATTEND Internal Medicine
DX: G47.33 Obstructive sleep apnea (adult) (pediatric) (principal); R51 Headache; M53.9 Dorsopathy, unspecified; T78.40XA Allergy, unspecified, initial encounter; Z99.89 Dependence on other enabling machines and devices; Z79.899 Other long term (current) drug therapy; Z98.890 Other specified postprocedural states; Z87.09 Personal history of other diseases of the respiratory system

== ENCOUNTER → 2019-10-10 | Outpatient (CLI) | payer MEDICAID ==
--- NOTE | 2019-10-10 15:32 | CT ---
EXAMINATION TYPE: CT abdomen pelvis wo con DATE OF EXAM: 10/10/2019 HISTORY: Generalized abdominal pain. Diverticulitis per order. CT DLP: 909 mGycm. Automated Exposure Control for Dose Reduction was Utilized. TECHNIQUE: CT scan of the abdomen and pelvis is performed with oral but without IV contrast. COMPARISON: CT abdomen and pelvis January 27, [address] FINDINGS: Within the limitations of a non-contrast study, the following observations are made. LUNG BASES: Persistent medial right basilar nodule measuring 9 x 7 mm image 8 shows perhaps minimal i nterval growth from prior studies. LIVER/GB: Cholecystectomy clips are redemonstrated. PANCREAS: No significant abnormality is seen. SPLEEN: No significant abnormality is seen. ADRENALS: No significant abnormality is seen. KIDNEYS: No renal calculus or hydronephrosis is seen bilaterally. Low dense 1.3 cm exophytic lesion p osteriorly midpole level right kidney axial image 36 favor simple thin-walled cyst significantly garcia ged from prior study. BOWEL: Oral contrast does not reach level of terminal ileum which is along right lateral aspect of th e thecal making evaluation slightly suboptimal. Mild wall thickening terminal ileum is present favore d product of poor distention. There is no suspicious small or large bowel dilatation. Mild to moderat e prominence of fecal material in the right colon extends into the transverse colon. There is some re dundancy of the sigmoid colon with a few scattered diverticula. No CT evidence for acute diverticulit is. Mild/moderate prominence of fecal material in the rectum. Redemonstration of displaced surgical c lip into the pelvic cul-de-sac anterior to rectum axial image 73. GENITAL ORGANS: Prostate gland normal in size. Scattered pelvic phleboliths bilaterally are redemonst rated. LYMPH NODES: No greater than 1cm abdominal or pelvic lymph nodes are appreciated. OSSEOUS STRUCTURES: Grade 1 retrolisthesis L2 on L3 anterior spur disc complex effacing the anterior thecal sac L1-L2 and L2-L3 levels along with L3-L4 level where there is moderate right-sided narrowin g and spurring. Moderate narrowing of both hip joints. There is some spurring and sclerosis along the sacroiliac joints bilaterally. OTHER: Mild calcified plaque abdominal aorta is seen. Small fat-containing left inguinal hernia redem onstrated. IMPRESSION: 1. Occasional distal colonic diverticula without convincing CT evidence for acute diverticulitis. Ove rall nonobstructive bowel gas pattern. Mild to borderline moderate diffuse colonic fecal stasis is th ought present.
== END | disposition home or self-care (01) ==
LOC: RADCTMAIN 13:27
PROVIDERS: ATTEND Family Medicine
DX: R14.3 Flatulence (principal)
CPT/HCPCS: 74176

== ENCOUNTER 2019-11-02 07:04 | Day surgery (SDC) | payer MEDICAID ==
[2019-10-31 13:12] VITALS: BMI 26.3
[~2019-11-02 07:04] MED LIST changes: -DEXAMETHASONE SOD PHOSPHATE 10 MG/ML 1 ML VIAL IV ONE; -HYDROmorphone 0.5 MG/0.5 ML SYRINGE IVP PRN; -MIDAZOLAM 2 MG/2 ML VIAL IV PRN; -ONDANSETRON 4 MG/2 ML VIAL IVP ONE; -SCOPOLAMINE 1.5MG/72HR PATCH TRANSDERM ONE; -ceFAZolin IN SWFI 2 GM/20 ML SYRINGE IVP ONE
[2019-11-02 07:38] VITALS: RESP 16; TEMP 97.2
[2019-11-02] MEDS ORDERED: PROPOFOL 10 MG/ML 20 ML VIAL IV ONE (07:46)
--- NOTE | 2019-11-02 07:46 | P.GSHP ---
History of Present Illness H&P Date: 11/02/19 Chief Complaint: Diverticulitis This a 69-year-old male who presents today for colonoscopy. Patient has had complaints of diverticulitis. Past Medical History Past Medical History: Cancer, Osteoarthritis (OA), Sleep Apnea/CPAP/BIPAP Additional Past Medical History / Comment(s): abdominal pain, diverticulitis on CT scan w/ fecal impaction,steroid Sep 2019,no cpap hx back pain,basal cell on back History of Any Multi-Drug Resistant Organisms: None Reported Past Surgical History: Adenoidectomy, Cholecystectomy, Tonsillectomy Additional Past Surgical History / Comment(s): deviated septum,lt rot cuff repair Past Anesthesia/Blood Transfusion Reactions: No Reported Reaction Smoking Status: Former smoker - Past Family History Mother Family Medical History: Cancer Additional Family Medical History / Comment(s): breast CA Medications and Allergies Home Medications Medication Instructions Recorded Confirmed Type diphenhydrAMINE HCL [Benadryl] 25 mg PO HS 10/31/17 11/02/19 History Ibuprofen 800 mg PO Q8H PRN 10/31/19 11/02/19 History Allergies Allergy/AdvReac Type Severity Reaction Status Date / Time naproxen sodium [From Aleve] Allergy Anaphylaxis Verified 11/02/19 07:20 Surgical - Exam Vital Signs Temp Pulse Resp BP Pulse Ox 97.2 F L 95 16 126/69 98 11/02/19 07:22 11/02/19 07:22 11/02/19 07:22 11/02/19 07:22 11/02/19 07:22 - General well developed, well nourished, no distress - Eyes PERRL - ENT normal pinna - Neck no masses - Respiratory normal expansion - Cardiovascular Rhythm: regular - Abdomen Abdomen: soft, non tender Assessment and Plan Assessment: History diverticula is. We'll perform colonoscopy.
--- NOTE | 2019-11-02 08:02 | P.OP ---
Date of Procedure: 11/02/19 Preoperative Diagnosis: Diverticulitis Postoperative Diagnosis: Diverticulosis Procedure(s) Performed: Colonoscopy Anesthesia: MAC Surgeon: Emmanuel Horta Estimated Blood Loss (ml): 5 Pathology: none sent Condition: stable Disposition: PACU Description of Procedure: The patient's placed on the endoscopy table in the lateral position. He received IV sedation. Digital rectal exam was performed which revealed no abnormalities. Flexible colonoscope was then placed patient anus passed throughout the entire colon. The ileocecal valve was visualized. The cecum, ascending and transverse colon appeared normal. In the descending and sigmoid colon is mild diverticular changes. Scope was then brought back the rectum and this appeared normal. Scope withdrawn for patient.
[2019-11-02 08:46] VITALS: BP 109/65; PULSE 82
== END 2019-11-02 09:21 | disposition home or self-care (01) ==
LOC: ORWHC2ENDO 07:04
PROVIDERS: ATTEND Surgery
DX: K57.32 Diverticulitis of large intestine without perforation or abscess without bleeding (principal); M19.90 Unspecified osteoarthritis, unspecified site; G47.30 Sleep apnea, unspecified; Z85.828 Personal history of other malignant neoplasm of skin; R94.8 Abnormal results of function studies of other organs and systems; Z90.49 Acquired absence of other specified parts of digestive tract; Z87.891 Personal history of nicotine dependence; Z80.3 Family history of malignant neoplasm of breast; Z79.899 Other long term (current) drug therapy; Z79.1 Long term (current) use of non-steroidal anti-inflammatories (NSAID); Z88.6 Allergy status to analgesic agent
CPT/HCPCS: 45378; J2704

== ENCOUNTER → 2020-02-04 | Outpatient (CLI) | payer MEDICAID | END | disposition home or self-care (01) | LOC: LABWHC1 08:42 | PROVIDERS: ATTEND Surgery | DX: U07.1 COVID-19 (principal) | CPT/HCPCS: 87635 ==

== ENCOUNTER 2020-02-06 05:58 | Day surgery (SDC) | payer MEDICAID ==
[2020-02-04 15:56] VITALS: BMI 26.9
[~2020-02-06 05:58] MED LIST changes: +HEPARIN SODIUM,PORCINE 5,000 UNIT/ML 1 ML VIAL SQ ONE; +HYDROmorphone 0.5 MG/0.5 ML SYRINGE IVP PRN; -LIDOCAINE 1% 20 ML VIAL (10MG/ML) FOR IV START INTRADERMA PRN; +ONDANSETRON 4 MG/2 ML VIAL IVP PRN; +SODIUM CHLORIDE 0.9% 500 ML 500 ML IV ONE
[2020-02-06] MEDS ORDERED: LIDOCAINE 1% (10MG/ML) FOR IV START INTRADERMA ONE (06:45)
[2020-02-06] MEDS ORDERED: DEXAMETHASONE SOD PHOSPHATE 10 MG/ML 1 ML VIAL IV ONE (06:46)
[2020-02-06 06:54] VITALS: RESP 16
[2020-02-06] MEDS ORDERED: GLYCOPYRROLATE 0.2 MG/ML 2 ML VIAL ONE (07:44)
[2020-02-06] MEDS ORDERED: fentaNYL (PF) 50 MCG/ML 2 ML AMP ONE (07:44)
[2020-02-06] MEDS ORDERED: ROCURONIUM BROMIDE 10 MG/ML 5 ML VIAL IV ONE (07:44)
[2020-02-06] MEDS ORDERED: PROPOFOL 10 MG/ML 20 ML VIAL IV ONE (07:44)
[2020-02-06] MEDS ORDERED: LIDOCAINE 1% INJ 10MG/ML (20 ML MDV) ONE (07:44)
[2020-02-06] MEDS ORDERED: KETOROLAC 30 MG/ML 1 ML VIAL ONE (07:44)
[2020-02-06] MEDS ORDERED: SUCCINYLCHOLINE CHLORIDE 100 MG/5 ML SYR IV ONE (07:44)
[2020-02-06] MEDS ORDERED: NEOSTIGMINE 1 MG/ML 10 ML VIAL ONE (07:44)
[2020-02-06] MEDS ORDERED: MIDAZOLAM 2 MG/2 ML VIAL ONE (07:44)
[2020-02-06] MEDS ORDERED: BUPIVACAIN-EPI 0.25%-1:200,000 30 ML VIAL SQ ONE (08:40)
[2020-02-06 09:01] VITALS: TEMP 97.1
--- NOTE | 2020-02-06 09:19 | P.OP ---
Date of Procedure: 02/06/20 Preoperative Diagnosis: Left inguinal hernia Postoperative Diagnosis: Left inguinal hernia Procedure(s) Performed: Laparoscopic robotic-assisted repair Of left inguinal hernia Excision of left cord lipoma Anesthesia: MUNDO Surgeon: Emmanuel Horta Estimated Blood Loss (ml): 5 Pathology: other (Cord lipoma) Condition: stable Disposition: PACU Description of Procedure: The patient's placed on the operating table in the supine position. The patient received general anesthesia. The patient's abdomen was prepped and draped in usual sterile fashion. The skin was anesthetized 1% local Xylocaine at the incision sites. Using an 11 blade a skin incision was made at the umbilicus. The fascia was grasped with a [place] and then the peritoneal cavity was entered with the Veress needle. Position of the Veress needle was confirmed with a positive drop test. After adequate insufflation a 5 mm trocar was placed into the peritoneal cavity. The Laparoscope was placed the peritoneal cavity. And a robotic 8 mm trocar was placed in the right lateral position and then another 8 mm robotic trochars placed in the left lateral position. The original 5 mm trocar was exchanged for a 12 mm trocar. The patient was placed in reverse Trendelenburg and then the patient was docked to the robot. Next the peritoneum over top of the hernia was incised and then using blunt and sharp dissection and electrocautery the hernia sac was dissected free from the floor of the inguinal canal. The hernia sac was completely reduced into the peritoneal cavity. The cord lipoma was dissected free and sent to pathology. And then using the Pro modeler mesh the hernia was repaired. The peritoneum was then sutured with 20V lock suture. The patient was then undocked the robot. The needle was withdrawn from the peritoneal cavity. The umbilical trocar site was closed with 0 Ethibond suture. The skin was closed interrupted 3-0 Monocryl suture. Dermabond dressing was applied. Patient was sent to recovery in stable condition.
--- NOTE | 2020-02-06 09:20 | P.GSHP ---
History of Present Illness H&P Date: 02/06/20 Chief Complaint: Left inguinal hernia This a 70-year-old male presents today for laparoscopic robotic cyst. Left inguinal hernia. Patient developed a large left groin mass Past Medical History Past Medical History: Cancer, Osteoarthritis (OA), Sleep Apnea/CPAP/BIPAP Additional Past Medical History / Comment(s): hx migraines yrs ago, no cpap used, hx basal cell cencer on back, diverticulosis, History of Any Multi-Drug Resistant Organisms: None Reported Past Surgical History: Adenoidectomy, Cholecystectomy, Orthopedic Surgery, Tonsillectomy Additional Past Surgical History / Comment(s): deviated septum, lt shoulder rotator cuff repair, surgery for sleep apnea, skin cancer removed from back, Past Anesthesia/Blood Transfusion Reactions: No Reported Reaction Smoking Status: Former smoker - Past Family History Mother Family Medical History: Cancer Additional Family Medical History / Comment(s): breast CA Medications and Allergies Home Medications Medication Instructions Recorded Confirmed Type diphenhydrAMINE HCL [Benadryl] 25 mg PO HS 10/31/17 02/06/20 History Ascorbic Acid [Vitamin C] 1,000 mg PO DAILY 02/04/20 02/06/20 History Cholecalciferol [Vitamin D3 (25 5,000 unit PO DAILY 02/04/20 02/06/20 History Mcg = 1000 Iu)] Cyanocobalamin (Vitamin B-12) 1,000 mcg PO DAILY 02/04/20 02/06/20 History [Vitamin B-12] Feverfew 1 tab PO DAILY 02/04/20 02/06/20 History Magnesium Oxide 400 mg PO DAILY 02/04/20 02/06/20 History Multivitamins, Thera [Multivitamin 1 tab PO DAILY 02/04/20 02/06/20 History (formulary)] Turmeric C 800 mg PO DAILY 02/04/20 02/06/20 History Vitamin B(Dose Unknown) 1 tab PO DAILY 02/04/20 02/06/20 History Docusate [Colace] 100 mg PO BID #20 capsule 02/06/20 Rx HYDROcodone/APAP 5-325MG [[place] 1 tab PO Q6HR PRN #10 tab 02/06/20 Rx 5-325] Allergies Allergy/AdvReac Type Severity Reaction Status Date / Time naproxen sodium [From Aleve] Allergy Anaphylaxis Verified 05/20/20 06:15 Surgical - Exam Vital Signs Temp Pulse Resp BP Pulse Ox 96.9 F L 78 16 117/61 97 02/06/20 06:42 02/06/20 06:42 02/06/20 06:42 02/06/20 06:42 02/06/20 06:42 - General well developed, well nourished, no distress - Eyes PERRL - ENT normal pinna - Neck no masses - Respiratory normal expansion - Cardiovascular Rhythm: regular - Abdomen Abdomen: soft, non tender Hernia: inguinal (Large left inguinal hernia) Assessment and Plan Assessment: Left renal hernia. We'll perform laparoscopic robotic system repair.
[2020-02-06] MEDS ORDERED: HYDROcodone/APAP 5-325MG 1 EACH TAB PO ONE (10:35)
[2020-02-06 12:09] VITALS: BP 124/64; PULSE 63
== END 2020-02-06 12:18 | disposition home or self-care (01) ==
LOC: OR 05:58
PROVIDERS: ATTEND Surgery
DX: K40.90 Unilateral inguinal hernia, without obstruction or gangrene, not specified as recurrent (principal); D17.6 Benign lipomatous neoplasm of spermatic cord; M19.90 Unspecified osteoarthritis, unspecified site; G47.30 Sleep apnea, unspecified; Z87.19 Personal history of other diseases of the digestive system; Z88.6 Allergy status to analgesic agent; Z79.899 Other long term (current) drug therapy; Z90.49 Acquired absence of other specified parts of digestive tract; Z90.89 Acquired absence of other organs; Z98.890 Other specified postprocedural states; Z85.828 Personal history of other malignant neoplasm of skin; Z87.891 Personal history of nicotine dependence; Z86.69 Personal history of other diseases of the nervous system and sense organs; Z80.3 Family history of malignant neoplasm of breast
CPT/HCPCS: 88304; 49650; C1781; J2250; J1644; J1100; J2710; J0690; J2405; J2001; J3010; J1885; J0330; J2704

== ENCOUNTER → 2021-07-10 | Outpatient (CLI) | payer MEDICAID ==
--- NOTE | 2021-07-10 12:13 | XR ---
EXAMINATION TYPE: XR elbow complete LT DATE OF EXAM: 07/10/2021 COMPARISON: NONE HISTORY: Pain FINDINGS: Three views of the elbow demonstrate no pathologic joint effusion. The osseous structures are intact . There is no acute fracture or dislocation. There is a large olecranon spur. Tiny bony density adj acent to the medial condyle too small to characterize. Spurring seen off both the medial and lateral condyle. IMPRESSION: 1. Large olecranon spur can be associated with olecranon bursitis correlate clinically. 2. Tiny hypertrophic spurring along the condylar region.
== END | disposition home or self-care (01) ==
LOC: RADXRMAIN 11:47
PROVIDERS: ATTEND Nurse Practitioner Family
DX: M77.8 Other enthesopathies, not elsewhere classified (principal)

== ENCOUNTER → 2023-03-23 | Outpatient (CLI) | payer MEDICARE ==
--- NOTE | 2023-03-23 11:46 | US ---
EXAMINATION TYPE: US arterial LE single level DATE OF EXAM: 03/23/2023 10:49 AM CLINICAL INDICATION: Male, 73 years old with history of I73.9 PERIPHERAL VASCULAR DISEASE, UNSPECIFIE D; left keys pain History of: Smoker: previous, 47 years ago Hypertension: n Diabetic: n Hyperlipidemia: n TIA/CVA: n Previous Vascular Surgery: n CAD: n [place]: n Vascular Ulcers: n Claudication: n Gangrene: n Doppler Waveforms: Right: Multiphasic Left: Multiphasic Right Brachial Pressure: 114 Left Brachial Pressure: 121 Ankle-Brachial Indices: Right: 1.2 Left: 1.2 Toe Brachial Indices: Right: 0.8 Left: 0.6 IMPRESSION: Normal ALETHEA indices
== END | disposition home or self-care (01) ==
LOC: RADUSWWP 10:06
PROVIDERS: ATTEND Family Medicine
DX: I73.9 Peripheral vascular disease, unspecified (principal)
CPT/HCPCS: 93922